=== PATIENT | female | born 1935 | race Caucasian/White ===

== ENCOUNTER 2016-10-28 08:41 | Emergency (ER) | payer MEDICARE, BC ==
[~2016-10-28 08:41] MED LIST: BUTRANS TD; NORCO 5-325 TA1 EACH PO; OMEGA-3 DPS1000 MG PO; SYNTHROID112 MCG PO; THERA1 EACH PO
--- NOTE | 2016-11-27 17:09 | ER ---
ADMIT: 10/28/2016 RM/LOC: ER [facility] MR#: [id number] [facility] [id number] [place], [place] [id number] [address] [place] [address] Emergency Room Report SEX: F AGE: 81 : 1935 DATE: 10/28/2016 This 81-year-old, severely demented female brought for right-sided chest pain. See T-sheet for remainder of history and physical. History comes primarily from her and medical records. Chest x-ray reveals opacities in the right. CTA reveals probable early pneumonia. Pertinent labs are potassium 3.3 and hemoglobin 11. Patient is being treated as an outpatient for early pneumonia. Chris Mars MD/ [facility] JOB #: [id number] CC: Chris Mars MD, Attending Physician Carmen Johnson MD, Family Physician
== END 2016-10-28 12:40 | disposition home or self-care (01) ==
LOC: ER 08:41
DX: J18.9 Pneumonia, unspecified organism (principal); Z88.5 Allergy status to narcotic agent; Z79.899 Other long term (current) drug therapy

== ENCOUNTER → 2016-12-31 | Outpatient (CLI) | payer MEDICARE, BC | END | disposition home or self-care (01) | LOC: RAD.S 12-25 08:41 → PTH.S 13:30 → RAD.S 13:46 | DX: R91.8 Other nonspecific abnormal finding of lung field (principal); J98.4 Other disorders of lung ==